=== PATIENT | male | born 1980 | race Caucasian/White ===

== ENCOUNTER 2020-06-04 22:09 | Emergency (ER) | payer MEDICAID, SELFPAY ==
[~2020-06-04] VITALS: Ht 198.1 cm; Wt 72.6 kg
[2020-06-04 22:15] VITALS: BP_SYST 130
[2020-06-04] MEDS ORDERED: LORazepam 2 MG/ML VIAL IVP ONE (22:30)
[2020-06-04] MEDS ORDERED: KETOROLAC TROMETHAMINE 30 MG VIAL IVP ONE (22:30)
[2020-06-04] MEDS ORDERED: NACL 0.9% 1,000 ML IV ONE (22:30)
[2020-06-04 23:45] VITALS: BP_SYST 130
[2020-06-05 00:14] LABS: ANION GAP 10 (5-15); CALCIUM 8.8 mg/dL (8.4-11.0); CHLORIDE 99 mmol/L (98-107); CREATININE 0.81 mg/dL (0.55-1.30); GLUCOSE 84 mg/dL (70-99); POTASSIUM 3.8 mmol/L (3.5-5.1); SODIUM SERUM 137 mmol/L (136-145); UREA NITROGEN, BLOOD 6 mg/dL (8-21)
[2020-06-05 00:19] LABS: ALANINE AMINOTRANSFERASE 128 U/L (12-78); ALBUMIN 4.3 g/dL (3.4-4.8); ASPARTATE AMINOTRANSFERASE 211 U/L (10-37); TOTAL BILIRUBIN 2.8 mg/dL (0.0-1.0)
[2020-06-05 00:20] LABS: GFR AFRICAN AMERICAN 136 mL/min (>90)
[2020-06-05 00:21] LABS: ALCOHOL, BLOOD < 3 mg/dL (<10)
== END 2020-06-04 23:45 | disposition home or self-care (01) ==
LOC: SED 22:09
DX: F10.239 Alcohol dependence with withdrawal, unspecified (principal); F17.200 Nicotine dependence, unspecified, uncomplicated; Z20.822 Contact with and (suspected) exposure to COVID-19
CPT/HCPCS: 36415; 36600; 71045; 80053; 82803; 87040; 87426; 99284; G0482